=== PATIENT | female | born 1990 | race Caucasian/White ===

== ENCOUNTER 2020-06-06 15:19 | Emergency (ER) | payer MEDICAID, OTHER ==
[~2020-06-06] VITALS: Ht 167.6 cm; Wt 54.4 kg
--- NOTE | 2020-06-06 15:20 | NUR ---
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 NOTED SINUS BRADYCARDIC. CHANGED TO HOSP GOWN, WARM BLANKET PROVIDED, PATIENT AAO x 4. NAD NOTED. AWAITING MD VALENZUELA
--- NOTE | 2020-06-06 15:22 | NUR ---
DR ESTES AT BEDSIDE
[2020-06-06 15:44] LABS: BASOPHILS % (AUTO) 0.4 % (0.0-2.0); EOSINOPHILS % (AUTO) 0.9 % (0.0-6.0); HEMATOCRIT 41 % (33-45); HEMOGLOBIN 13.9 g/dL (11.5-14.8); LYMPHOCYTES # (AUTO) 2.3 /CMM (0.8-4.8); LYMPHOCYTES % (AUTO) 37.7 % (20.0-44.0); MEAN CORPUSCULAR HGB CONC 34 g/dl (31.0-36.0); MEAN CORPUSCULAR VOLUME 98 fL (82-100); MONOCYTES # (AUTO) 0.4 /CMM (0.1-1.30); NEUTROPHILS # (AUTO) 3.4 /CMM (1.8-8.9); PLATELET COUNT (AUTO) 223 /CMM (150-450); RED BLOOD CELL COUNT(AUTO) 4.15 MIL/uL (4.0-5.2); WHITE BLOOD COUNT (AUTO) 6.2 K/uL (4.3-11.0)
[2020-06-06 15:51] LABS: CALCIUM, SERUM 8.8 mg/dL (8.5-10.1); CARBON DIOXIDE 28 mmol/L (21-32); CHLORIDE 103 mmol/L (98-107); CREATININE 0.9 mg/dL (0.6-1.3); GLUCOSE 99 mg/dL (74-106); POTASSIUM 3.8 mmol/L (3.5-5.1); SODIUM SERUM 139 mmol/L (136-145); UREA NITROGEN, BLOOD 10 mg/dL (7-18)
--- NOTE | 2020-06-06 16:01 | NUR ---
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
[2020-06-06] MEDS ORDERED: ACET-73 PO (16:45)
--- NOTE | 2020-06-06 17:01 | NUR ---
IV removed. Catheter intact and site benign. Pressure and 4x4 applied to site. No bleeding noted.Patient discharged to home in stable condition. Written and verbal after care instructions given. Patient verbalizes understanding of instruction.
[2020-06-06 17:03] VITALS: BP 127/99
== END 2020-06-06 17:17 | disposition home or self-care (01) ==
LOC: ER 15:28
DX: R07.89 Other chest pain (principal); R22.43 Localized swelling, mass and lump, lower limb, bilateral; Z86.73 Personal history of transient ischemic attack (TIA), and cerebral infarction without residual deficits
CPT/HCPCS: 36415; 71045-TC; 80048-TC; 83880; 84484-TC; 85025-TC; 85378-TC; 93970-TC